=== PATIENT | female | born 1995 | race Hispanic/Latino ===

== ENCOUNTER 2017-08-22 14:29 | Emergency (ER) | payer OTHER ==
[~2017-08-22] VITALS: Ht 149.9 cm; Wt 75.3 kg
[2017-08-22] MEDS ORDERED: MAGNESIUM/ALUMINUM/SIMETHICONE 30 ML UDC PO ONE (15:00)
[2017-08-22] MEDS ORDERED: BELLADONNA ALK/PHENOBARBITAL 5 ML UDC PO ONE (15:00)
[2017-08-22] MEDS ORDERED: LIDOCAINE VISC 2% SOLN 15 ML UDC PO ONE (15:00)
[2017-08-22 17:26] VITALS: BP 120/64
== END 2017-08-22 16:15 | disposition home or self-care (01) ==
LOC: FSED 14:29
DX: R10.13 Epigastric pain (principal); R03.0 Elevated blood-pressure reading, without diagnosis of hypertension
CPT/HCPCS: 80048; 80076; 81003; 81025; 85025; 99283

== ENCOUNTER 2017-11-19 15:01 | Emergency (ER) | payer OTHER ==
[~2017-11-19] VITALS: Ht 149.9 cm; Wt 75.3 kg
--- OUTSIDE RECORDS SUMMARY | 2017-11-19 15:03 | XMS REPORT | Continuity of Care Document ---
Author Author [facility] Organization [facility] Address [address] [place] [address] Phone Unavailable Care Team Providers Care Tire Repairer Name Role Phone NO, PCP PCP Unavailable Advance Directives Directive Response Recorded Date/Time Does the patient have an advance directive? No 08/22/17 3:42pm If yes, is advance directive on file with [facility]? No 08/22/17 3:42pm If not on file with [facility] will patient provide a copy? No 08/22/17 3:42pm Do you have a Directive to Physician? No 08/22/17 3:42pm Do you have a Medical Power of Tanker Driver? No 08/22/17 3:42pm Do you have an out of hospital Do Not Resuscitate Order? No 08/22/17 3:42pm Do you have any special needs we should be aware of? No 08/22/17 3:42pm Do you have a support person here with you today? Yes 08/22/17 3:42pm Did patient receive Notice of Privacy Practices? Yes 08/22/17 3:42pm Did patient receive patient rights and responsibilities? Yes 08/22/17 3:42pm Problems No problem information available. Medications No medication information available. Social History Smoking Status Start Date Stop Date Never Smoker Hospital Discharge Instructions No hospital discharge instruction information available. Plan of Care Discharge Date 08/22/17 4:15pm Disposition HOME, SELF-CARE Condition at Discharge Improved Instructions/Education Provided Abdominal Pain - Adult Forms Provided Work/School Excuse Prescriptions See Medication Section Additional Instructions/Education Return to closest emergency room if symptoms worsen. Tyelnol as needed for pain. Follow up with your GI doctor at your already scheduled appointment for your upper endoscopy. Functional Status No functional status information available. Allergies, Adverse Reactions, Alerts No known allergies. Immunizations No immunization information available. Vital Signs Acute Vital Signs Vital Response Date/Time Temperature (Fahrenheit) 98.6 degrees F (97.6 - 99.5) 08/22/2017 5:26pm Pulse Pulse Rate (adult) 76 bpm (60 - 90) 08/22/2017 5:26pm Respiratory Rate 16 bpm (12 - 24) 08/22/2017 5:26pm Blood Pressure 120/64 mm Hg 08/22/2017 5:26pm Height 4 ft 11 in 08/22/2017 2:30pm Weight 166 lb 08/22/2017 2:30pm Body Mass Index 33.5 kg/m^2 08/22/2017 2:30pm Results No relevant diagnostic test, laboratory data and/or discharge summary information available. Procedures No procedure information available. Encounters Encounter Location Arrival/Admit Date Discharge/Depart Date Attending Provider Departed Emergency Room [facility] 08/22/17 2:29pm 4:15pm RITO BLAIR MD
[2017-11-19 15:47] VITALS: BP 142/77
== END 2017-11-19 15:52 | disposition home or self-care (01) ==
LOC: FSED 15:01
DX: J03.90 Acute tonsillitis, unspecified (principal); K59.00 Constipation, unspecified; I10 Essential (primary) hypertension
CPT/HCPCS: 83518; 99283